=== PATIENT | female | born 1930 | race Caucasian/White ===

== ENCOUNTER 2019-02-16 15:47 | Emergency (ER) | payer MEDICARE, BC ==
--- NOTE | 2019-02-16 16:50 | EDM.PDOC ---
ED HPI GENERAL MEDICAL PROBLEM - General Chief Complaint: Gastrointestinal Problem Stated Complaint: n/v/d Time Seen by Provider: 02/16/19 16:33 Source of Information: Reports: Patient History Limitations: Reports: No Limitations - History of Present Illness INITIAL COMMENTS - FREE TEXT/NARRATIVE: Patient presents to ER with complaints of nausea, diarrhea and abdominal discomfort. States had one episode this am after breakfast where she felt she was going to vomit and has 3 episodes of loose stools since then. Has been doctoring due to abdominal bloating, had CT recently but states never really had pain like this. Did not note any blood in her stools. No fevers. Has not had an appetite today. Was feeling good over the last 2 days, did a lot of walking with family. No shortness of breath or chest pain. Family states her ankles were swollen the last 2 days. No urinary complaints. Onset: Today, Gradual Duration: Hour(s): Location: Reports: Abdomen Quality: Reports: Ache Severity: Moderate Improves with: Reports: Rest Worsens with: Reports: Eating Associated Symptoms: Reports: Loss of Appetite, Nausea/Vomiting. Denies: Confusion, Chest Pain, Cough, Fever/Chills, Headaches, Shortness of Breath Bilateral Lower Abdomen Pain Score (Numeric/FACES): 5 - Related Data Allergies Allergy/AdvReac Type Severity Reaction Status Date / Time bee venom protein (honey bee) Allergy Chills Verified 02/16/19 15:51 Penicillins Allergy Swelling Verified 02/16/19 15:51 Sulfa (Sulfonamide Allergy Other Verified 02/16/19 15:51 Antibiotics) Home Meds: Home Meds Acetaminophen [Tylenol Extra Strength] 500 mg PO BID 02/16/19 [History] Calcium Carbonate [Tums] 0.5 tab PO DAILY 02/16/19 [History] Losartan [Cozaar] 50 mg PO DAILY 02/16/19 [History] Metoprolol Succinate 25 mg PO DAILY 02/16/19 [History] Past Medical History HEENT History: Reports: Cataract Cardiovascular History: Reports: Hypertension Musculoskeletal History: Reports: Arthritis Social & Family History - Tobacco Use Smoking Status *Q: Never Smoker Second Hand Smoke Exposure: No ED ROS GENERAL - Review of Systems Review Of Systems: See Below Constitutional: Reports: Decreased Appetite. Denies: Fever, Chills, Malaise, Weakness HEENT: Denies: Ear Pain, Sinus Problem, Throat Pain, Vertigo Respiratory: Denies: Shortness of Breath, Cough Cardiovascular: Reports: Edema. Denies: Chest Pain, Lightheadedness Endocrine: Denies: Fatigue GI/Abdominal: Reports: Abdominal Pain, Diarrhea, Nausea. Denies: Vomiting Musculoskeletal: Reports: No Symptoms Skin: Reports: No Symptoms Neurological: Reports: No Symptoms ED EXAM, GI/ABD - Physical Exam Exam: See Below Exam Limited By: No Limitations General Appearance: Alert, WD/WN, No Apparent Distress Ears: Normal External Exam, Normal TMs Nose: Normal Inspection, Normal Mucosa, No Blood Throat/Mouth: Normal Inspection, Other (blackened color to tongue, has used Pepto Bismal today.) Neck: Normal Inspection, Supple, Non-Tender Respiratory/Chest: No Respiratory Distress, Lungs Clear, Normal Breath Sounds Cardiovascular: Normal Peripheral Pulses, Regular Rate, Rhythm GI/Abdominal Exam: Normal Bowel Sounds, Soft, Tender (lower quadrants) Extremities: Normal Inspection, Pedal Edema (trace) Skin Exam: Warm, Dry Course - Vital Signs Last Recorded V/S: Last Vital Signs Temp 98.6 F 02/16/19 16:00 Pulse 86 02/16/19 16:00 Resp 18 02/16/19 16:00 BP 149/79 H 02/16/19 16:00 Pulse Ox 97 02/16/19 16:00 - Orders/Labs/Meds Orders: Active Orders 24 hr Category Date Time Status Abdomen 2V AP Flat Upright [CR] Stat Exams 02/16/19 16:11 Ordered Labs: Laboratory Tests 02/16/19 02/16/19 02/16/19 Range/Units 16:12 16:12 16:12 WBC 12.7 H (5.0-10.0) 10^3/uL RBC 4.22 (4.00-5.50) 10^6/uL Hgb 13.8 (12.0-16.0) g/dL Hct 39.4 (37.0-47.0) % MCV 93.4 (82.0-94.0) fL MCH 32.7 H (27.0-32.0) pg MCHC 35.0 (33.0-38.0) g/dL RDW Coeff of Karmen 12.2 (11.0-15.0) % Plt Count 262 (150-400) 10^3/uL Neut % (Auto) 80.4 (35-85) % Lymph % (Auto) 10.1 (10-55) % [place] % (Auto) 9.3 (0-16) % Eos % (Auto) 0.1 (0-5) % Baso % (Auto) 0.1 (0-3) % Neut # (Auto) 10.24 H (1.80-7.00) 10^3/uL Lymph # (Auto) 1.29 (1.00-4.80) 10^3/uL [place] # (Auto) 1.19 H (0.00-0.80) 10^3/uL Eos # (Auto) 0.01 (0.00-0.45) 10^3/uL Baso # (Auto) 0.01 10^3/uL Sodium 129 L (136-145) mEq/L Potassium 3.7 (3.5-5.0) mEq/L Chloride 93 L (98-106) mEq/L Carbon Dioxide 24 (21-32) mmol/L BUN 17 (7-18) mg/dL Creatinine 0.8 (0.6-1.0) mg/dL Est Cr Clr Drug Dosing 42.78 mL/min Estimated GFR (MDRD) > 60 (>=60) mL/min Glucose 141 H D (75-99) mg/dL Calcium 9.0 (8.4-10.1) mg/dL Total Bilirubin 1.2 H (0.0-1.0) mg/dL AST 29 (15-37) U/L ALT 35 (12-78) U/L Alkaline Phosphatase 103 (46-116) U/L C-Reactive Protein 2.1 H (0.2-0.8) mg/dL Total Protein 7.2 (6.4-8.2) g/dL Albumin 3.9 (3.4-5.0) g/dL Urine Color Yellow (YELLOW) Urine Appearance Clear (CLEAR) Urine pH 5.5 (4.5-8.0) Ur Specific [place] 1.020 (1.003-1.020) Urine Protein Trace H (NEGATIVE) mg/dL Urine Glucose (UA) Negative (NEGATIVE) mg/dL Urine Ketones 40 H (NEGATIVE) mg/dL Urine Occult Blood Moderate H (NEGATIVE) Urine Nitrite Negative (NEGATIVE) Urine Bilirubin Negative (NEGATIVE) Urine Urobilinogen 0.2 (0.2-1.0) EU/dL Ur Leukocyte Esterase Negative (NEGATIVE) Urine RBC 0-5 (0-5) /HPF Urine WBC Not seen (0-5) /HPF Ur Squamous Epith Cells Occasional H (NOT SEEN) /HPF Urine Bacteria Occasional H (NOT SEEN) /HPF Meds: Medications Discontinued Medications Generic Name Dose Route Start Last Admin Trade Name Nathan PRN Reason Stop Dose Admin Ondansetron HCl 2 packet 02/16/19 17:07 02/16/19 17:11 Take Home: Ondansetron Odt 4 Mg, 2 Tab Pack PO 02/16/19 17:08 2 packet ONETIME ONE Administration - Re-Assessments/Exams Free Text/Narrative Re-Assessment/Exam: 02/16/19 17:05 Reviewed labs and xray with family. WBC and CRP are mildly elevated. Discussed consideration of CT scan and IV fluids. Patient may likely have gastroenteritis, would like to try at home and family is comfortable with that. Advised if pain increases, develops fever, vomiting or worsening symptoms, should return. Departure - Departure Time of Disposition: 17:08 Disposition: Home, Self-Care 01 Condition: Fair Clinical Impression: Diarrhea, Abdominal pain - Discharge Information *PRESCRIPTION DRUG MONITORING PROGRAM REVIEWED*: No *COPY OF PRESCRIPTION DRUG MONITORING REPORT IN PATIENT KAJAL: No Referrals: Lupillo Avendano MD [Primary Care Provider] - Forms: ED Department Discharge Additional Instructions: 1. Push fluids, gatorate 2. Rest 3. zofran 4 mg every 6 hours as needed for nausea 4. Return for IV fluids or further testing with CT if pain and diarrhea persists 5. If still have diarrhea on Monday, will proceed with collection of stools for further evaluation 6. Notify us if develop fever, pain increases or changes occur - My Orders Last 24 Hours: My Active Orders 02/16/19 16:11 Abdomen 2V AP Flat Upright [CR] Stat - Assessment/Plan Last 24 Hours: My Active Orders 02/16/19 16:11 Abdomen 2V AP Flat Upright [CR] Stat
[2019-02-16 16:53] LABS: CHLORIDE,CL 93 mEq/L (98-106); SODIUM,NA 129 mEq/L (136-145)
[2019-02-16] MEDS ORDERED: Take Home: Ondansetron 4 MG Tab.DIS, 2 Tab Pack PO ONE (17:07)
== END 2019-02-16 17:15 | disposition home or self-care (01) ==
LOC: CC.ED 15:47
DX: R19.7 Diarrhea, unspecified (principal); R10.31 Right lower quadrant pain; R10.32 Left lower quadrant pain; R11.2 Nausea with vomiting, unspecified; I10 Essential (primary) hypertension; M19.90 Unspecified osteoarthritis, unspecified site; Z91.030 Bee allergy status; Z88.0 Allergy status to penicillin; Z88.2 Allergy status to sulfonamides; Z79.899 Other long term (current) drug therapy
CPT/HCPCS: 36415; 74019; 80053; 81001; 85025; 86140; 99284; A9270

== ENCOUNTER 2019-02-17 04:55 | Observation (INO) | payer MEDICARE, BC ==
[2019-02-17] MEDS ORDERED: fentaNYL 100 MCG/2 ML SDV IVPUSH PRN (05:29)
[2019-02-17] MEDS ORDERED: Acetaminophen 325 MG Tab PO PRN (05:29)
[2019-02-17] MEDS ORDERED: Sodium Chloride 0.9% 10 ML Syringe FLUSH PRN (05:29)
[2019-02-17] MEDS ORDERED: Ondansetron 4 MG/2 ML SDV IV PRN (05:29)
[2019-02-17] MEDS ORDERED: Ondansetron 4 MG Tab.DIS PO PRN (05:29)
[2019-02-17] MEDS: Sodium Chloride 0.9% 1,000 ML IV SCH ×2 (05:57→12:54)
[2019-02-17] MEDS ORDERED: Enoxaparin 40 MG/0.4 ML Syringe SUBCUT SCH ×2 (06:00→08:00)
[2019-02-17 07:47] LABS: CHLORIDE,CL 91 mEq/L (98-106); SODIUM,NA 125 mEq/L (136-145)
[2019-02-17] MEDS ORDERED: Losartan 25 MG Tab PO SCH (08:00)
[2019-02-17] MEDS ORDERED: Metoprolol Succinate 25 MG Tab.ER PO SCH (08:00)
[2019-02-17] MEDS ORDERED: HYDROmorphone 1 MG/ML Syringe IVPUSH ONE (08:13)
[2019-02-17] MEDS ORDERED: Iopamidol 755 Mg/ML 100 ML Bottle IVPUSH ONE (10:32)
[2019-02-17] MEDS ORDERED: Barium Sulfate Oral Susp 450 ML Bottle PO ONE (10:34)
--- NOTE | 2019-02-17 12:19 | PCM.HP ---
H&P History of Present Illness - General Date of Service: 02/17/19 Admit Problem/Dx: Admission Diagnosis/Problem Admission Diagnosis/Problem Abdominal pain Source of Information: Patient History Limitations: Reports: No Limitations - History of Present Illness Initial Comments - Free Text/Narative: Patient presented for direct admit for increased abdominal pain. Patient was seen yesterday in ER for mild abdominal pain and diarrhea. Labs at that time showed WBC of 12.7, CRP of 2. Sodium 129. Suggested CT scan and IV fluids but patient was feeling better and wanted to return home to be with "all the family here for the 4th". States pain progressively got worse over the next 5 hours so presented back and directly admitted. Now experiencing more nausea and vomited x3. has not had any further diarrhea since prior to the first ER visti. Pain had gone from a 2-3 on discharge yesterday to a 9/10 now. No fevers. Admitted and started on IV normal saline, prep for CT scan of abdomen. Onset of Symptoms: Reports: Today, Gradual Duration of Symptoms: Reports: Hour(s):, Getting Worse Location: Reports: Abdomen Quality: Reports: Sharp Severity: Severe Improves with: Reports: None Associated Symptoms: Reports: Loss of Appetite, Nausea/Vomiting. Denies: Chest Pain, Cough, Fever/Chills, Shortness of Breath Lower Abdominal Pain Score (Numeric/FACES): 9 - Related Data Allergies/Adverse Reactions: Allergies Allergy/AdvReac Type Severity Reaction Status Date / Time bee venom protein (honey bee) Allergy Chills Verified 02/17/19 03:58 Penicillins Allergy Swelling Verified 02/17/19 03:58 Sulfa (Sulfonamide Allergy Other Verified 02/17/19 03:58 Antibiotics) Home Medications: Home Meds Acetaminophen [Tylenol Extra Strength] 500 mg PO BID 02/16/19 [History] Calcium Carbonate [Tums] 0.5 tab PO DAILY 02/16/19 [History] Losartan [Cozaar] 50 mg PO DAILY 02/16/19 [History] Metoprolol Succinate 25 mg PO DAILY 02/16/19 [History] Past Medical History HEENT History: Reports: Cataract Cardiovascular History: Reports: Hypertension Gastrointestinal History: Reports: Diverticulosis Musculoskeletal History: Reports: Arthritis - Past Surgical History HEENT Surgical History: Reports: None Cardiovascular Surgical History: Reports: None GI Surgical History: Reports: None Musculoskeletal Surgical History: Reports: None Social & Family History - Family History Family Medical History: Noncontributory - Tobacco Use Smoking Status *Q: Never Smoker Second Hand Smoke Exposure: No - Caffeine Use Caffeine Use: Reports: Coffee - Recreational Drug Use Recreational Drug Use: No H&P Review of Systems - Review of Systems: Review Of Systems: See Below General: Reports: Chills, Malaise, Weakness, Decreased Appetite. Denies: Fever HEENT: Reports: No Symptoms Pulmonary: Denies: Shortness of Breath, Cough Cardiovascular: Denies: Chest Pain, Edema, Lightheadedness Gastrointestinal: Reports: Abdominal Pain, Nausea, Vomiting. Denies: Diarrhea Exam - Exam Exam: See Below - Vital Signs Vital Signs: Last Vital Signs Temp 100.5 F 02/17/19 11:45 Pulse 108 H 02/17/19 11:45 Resp 16 02/17/19 11:45 BP 115/56 L 02/17/19 11:45 Pulse Ox 90 L 02/17/19 11:45 Weight: 162 lb 12.8 oz - Exam General: Alert, Oriented HEENT: Conjunctiva Clear, Mucosa Moist & [place], Posterior Pharynx Clear Neck: Supple Lungs: Clear to Auscultation, Normal Respiratory Effort Cardiovascular: Tachycardia GI/Abdominal Exam: Tender (bilateral lower quadrants, more guarded now with exam. Mildly distended. ), Abnormal Bowel Sounds Extremities: Normal Inspection, Pedal Edema (trace edema) Skin: Warm, Dry Neuro Extensive - Mental Status: Alert, Oriented x3 - Patient Data Lab Results Last 24 hrs: Laboratory Results - last 24 hr 02/17/19 02/17/19 Range/Units 07:20 07:20 WBC 4.9 L (5.0-10.0) 10^3/uL RBC 4.33 (4.00-5.50) 10^6/uL Hgb 14.1 (12.0-16.0) g/dL Hct 40.4 (37.0-47.0) % MCV 93.3 (82.0-94.0) fL MCH 32.6 H (27.0-32.0) pg MCHC 34.9 (33.0-38.0) g/dL RDW Coeff of Karmen 12.5 (11.0-15.0) % Plt Count 258 (150-400) 10^3/uL Neut % (Auto) 81.0 (35-85) % Lymph % (Auto) 10.0 (10-55) % [place] % (Auto) 9.0 (0-16) % Eos % (Auto) 0 (0-5) % Baso % (Auto) 0 (0-3) % Neut # (Auto) 3.97 (1.80-7.00) 10^3/uL Lymph # (Auto) 0.49 L (1.00-4.80) 10^3/uL [place] # (Auto) 0.44 (0.00-0.80) 10^3/uL Eos # (Auto) 0.00 (0.00-0.45) 10^3/uL Baso # (Auto) 0.00 10^3/uL Sodium 125 L (136-145) mEq/L Potassium 4.2 (3.5-5.0) mEq/L Chloride 91 L (98-106) mEq/L Carbon Dioxide 25 (21-32) mmol/L BUN 16 (7-18) mg/dL Creatinine 0.8 (0.6-1.0) mg/dL Est Cr Clr Drug Dosing 46.38 mL/min Estimated GFR (MDRD) > 60 (>=60) mL/min Glucose 134 H (75-99) mg/dL Calcium 8.6 (8.4-10.1) mg/dL C-Reactive Protein 11.3 H (0.2-0.8) mg/dL Result Diagrams: 02/17/19 07:20 02/17/19 07:20 - Problem List (1) Abdominal pain SNOMED Code(s): 29107673 ICD Code: R10.9 - UNSPECIFIED ABDOMINAL PAIN Status: Acute Priority: High Current Visit: Yes Problem List Initiated/Reviewed/Updated: Yes Orders Last 24hrs: Active Orders 24 hr Category Date Time Status Patient Status [ADT] Routine ADT 02/17/19 05:30 Active Oxygen Therapy [RC] DAILY Care 02/17/19 05:30 Active Peripheral IV Care [RC] 08,1999 Care 02/17/19 05:33 Active Up ad [place] [RC] .PRN Care 02/17/19 05:29 Active Vital Signs [RC] 0000,0400,0800,1200,1600,1999 Care 02/17/19 05:30 Active Nothing per Oral Now Diet [DIET] Diet 02/17/19 Breakfast Active Abdomen Pelvis w Cont [CT] Routine Exams 02/17/19 05:29 Taken Acetaminophen [Tylenol] Med 02/17/19 05:29 Active 650 mg PO Q4H PRN Enoxaparin [Lovenox] Med 02/17/19 08:00 Active 40 mg SUBCUT Q24H Losartan [Cozaar] Med 02/17/19 08:00 Active 50 mg PO DAILY Metoprolol Succinate [Toprol XL] Med 02/17/19 08:00 Active 25 mg PO DAILY Ondansetron [Zofran ODT] Med 02/17/19 05:29 Active 4 mg PO Q4H PRN Ondansetron [Zofran] Med 02/17/19 05:29 Active 4 mg IV Q4H PRN Sodium Chloride 0.9% [Normal Saline] 1,000 ml Med 02/17/19 05:30 Active IV ASDIRECTED Sodium Chloride 0.9% [Saline Flush] Med 02/17/19 05:29 Active 10 ml FLUSH ASDIRECTED PRN fentaNYL [Sublimaze] Med 02/17/19 05:29 Active 25 mcg IVPUSH Q4H PRN Peripheral IV Insertion Adult [OM.PC] Routine Oth 02/17/19 05:29 Ordered Resuscitation Status Routine Resus Stat 02/17/19 05:29 Ordered Medication Orders Acetaminophen (Tylenol) 650 mg PO Q4H PRN PRN Reason: Pain (Mild 1-3)/fever Enoxaparin Sodium (Lovenox) 40 mg SUBCUT Q24H [facility] Last Admin: 02/17/19 08:00 Dose: 40 mg Fentanyl (Sublimaze) 25 mcg IVPUSH Q4H PRN PRN Reason: Pain Last Admin: 02/17/19 05:54 Dose: 25 mcg Sodium Chloride (Normal Saline) 1,000 mls @ 125 mls/hr IV ASDIRECTED [facility] Last Admin: 02/17/19 05:57 Dose: 125 mls/hr Losartan Potassium (Cozaar) 50 mg PO DAILY [facility] Last Admin: 02/17/19 08:00 Dose: Metoprolol Succinate (Toprol Xl) 25 mg PO DAILY [facility] Last Admin: 02/17/19 08:00 Dose: Ondansetron HCl (Zofran Odt) 4 mg PO Q4H PRN PRN Reason: nausea, able to take PO Ondansetron HCl (Zofran) 4 mg IV Q4H PRN PRN Reason: Nausea/Vomiting Last Admin: 02/17/19 05:56 Dose: 4 mg Sodium Chloride (Saline Flush) 10 ml FLUSH ASDIRECTED PRN PRN Reason: Keep Vein Open Assessment/Plan Comment:: Patient will be admitted for IV fluids, proceed with CT scan of abdomen. Zofran for nausea. Fentanyl for pain. Will follow.
[2019-02-17] MEDS ORDERED: Ertapenem 1 GM in Sodium Chloride 0.9% 100 ML IV ONE (12:21)
[2019-02-17] MEDS ORDERED: HYDROmorphone 1 MG/ML Syringe IVPUSH PRN (12:24)
--- NOTE | 2019-02-17 12:32 | PCM.DCSUM1 ---
Discharge Summary - Hospital Course Free Text/Narrative:: Patient admitted to observation for increasing abdominal pain. Was in ER yesterday with mild abdominal pain that had actually improved while in the ER. Had 3 diarrhea stools prior to arrival, none after. No fevers. Labs did show WBC of 12.7, CRP of 2, UA negative. Sodium low at 129. Suggested admission or at minimum CT scan of abdomen and IV fluids but as she felt better, patient preferred to go home with family. Returned approximately 12 hours later and was directly admitted for increasing abdominal pain. Patient now nauseated, had vomited x3 after arrival. Diagnosis: Stroke: No Modified [place] Scale: No Symptoms at All Modified [place] Scale Score: 0 - Discharge Data Discharge Date: 02/17/19 Discharge Disposition: DC/Tfer to Acute Hospital 02 Condition: Fair - Discharge Diagnosis/Problem(s) (1) Abdominal pain SNOMED Code(s): 65192384 ICD Code: R10.9 - UNSPECIFIED ABDOMINAL PAIN Status: Acute Priority: High Current Visit: Yes - Patient Summary/Data Complications: none Hospital Course: Patient admitted and started on IV normal saline. Labs repeated. WBC now low at 4.9 but CRP is 11.3. Sodium down to 125. Given Zofran for nausea. No further diarrhea. Prep started for CT scan but did take some time for patient to tolerate oral contrast. Fentanyl was given for pain, did not feel any relief form that. Dilaudid then given with better control of her pain. Abdomen is more firm today, hypoactive bowel sounds noted. More tender by exam. Over the last few hours, noted that sats only 90% on room air while sleeping. Oxygen placed at 2 liters. Temp now 100.5. CT scan accomplished and radiology report received. Shows acute appendicitis. Did contact [facility] and spoke with Dr. Blanchard, ER physician who agreed to accept the patient in transfer. Recommended dose of Invanz now. Will transfer ALS to cover pain, continue IV fluids. - Patient Instructions Diet: NPO Activity: As Tolerated - Discharge Plan *PRESCRIPTION DRUG MONITORING PROGRAM REVIEWED*: No *COPY OF PRESCRIPTION DRUG MONITORING REPORT IN PATIENT KAJAL: No Home Medications: Home Meds Acetaminophen [Tylenol Extra Strength] 500 mg PO BID 02/16/19 [History] Calcium Carbonate [Tums] 0.5 tab PO DAILY 02/16/19 [History] Losartan [Cozaar] 50 mg PO DAILY 02/16/19 [History] Metoprolol Succinate 25 mg PO DAILY 02/16/19 [History] - Discharge Summary/Plan Comment DC Time >30 min.: Yes Discharge Summary/Plan Comment: Transfer to [facility] for acute appendicitis. Time spent with family and patient 20 minutes Time for transfer arrangements and discharge 15 minutes. Time for documentation 10 minutes. - General Info Date of Service: 02/17/19 Admission Dx/Problem (Free Text: Admission Diagnosis/Problem Admission Diagnosis/Problem Abdominal pain Functional Status: Reports: Pain Controlled. Denies: Tolerating Diet (remains NPO) - Review of Systems General: Reports: Fever, Weakness, Fatigue, Malaise HEENT: Reports: No Symptoms Pulmonary: Denies: Shortness of Breath, Cough Cardiovascular: Reports: Edema (trace). Denies: Chest Pain, Lightheadedness Gastrointestinal: Reports: Abdominal Pain, Nausea. Denies: Diarrhea, Vomiting Genitourinary: Reports: No Symptoms Musculoskeletal: Reports: No Symptoms Skin: Reports: No Symptoms Neurological: Reports: No Symptoms - Patient Data Vitals - Most Recent: Last Vital Signs Temp 100.5 F 02/17/19 11:45 Pulse 108 H 02/17/19 11:45 Resp 16 02/17/19 11:45 BP 115/56 L 02/17/19 11:45 Pulse Ox 90 L 02/17/19 11:45 Weight - Most Recent: 162 lb 12.8 oz Lab Results - Last 24 hrs: Laboratory Results - last 24 hr 02/17/19 02/17/19 Range/Units 07:20 07:20 WBC 4.9 L (5.0-10.0) 10^3/uL RBC 4.33 (4.00-5.50) 10^6/uL Hgb 14.1 (12.0-16.0) g/dL Hct 40.4 (37.0-47.0) % MCV 93.3 (82.0-94.0) fL MCH 32.6 H (27.0-32.0) pg MCHC 34.9 (33.0-38.0) g/dL RDW Coeff of Karmen 12.5 (11.0-15.0) % Plt Count 258 (150-400) 10^3/uL Neut % (Auto) 81.0 (35-85) % Lymph % (Auto) 10.0 (10-55) % [place] % (Auto) 9.0 (0-16) % Eos % (Auto) 0 (0-5) % Baso % (Auto) 0 (0-3) % Neut # (Auto) 3.97 (1.80-7.00) 10^3/uL Lymph # (Auto) 0.49 L (1.00-4.80) 10^3/uL [place] # (Auto) 0.44 (0.00-0.80) 10^3/uL Eos # (Auto) 0.00 (0.00-0.45) 10^3/uL Baso # (Auto) 0.00 10^3/uL Sodium 125 L (136-145) mEq/L Potassium 4.2 (3.5-5.0) mEq/L Chloride 91 L (98-106) mEq/L Carbon Dioxide 25 (21-32) mmol/L BUN 16 (7-18) mg/dL Creatinine 0.8 (0.6-1.0) mg/dL Est Cr Clr Drug Dosing 46.38 mL/min Estimated GFR (MDRD) > 60 (>=60) mL/min Glucose 134 H (75-99) mg/dL Calcium 8.6 (8.4-10.1) mg/dL C-Reactive Protein 11.3 H (0.2-0.8) mg/dL Med Orders - Current: Current Medications Acetaminophen (Tylenol) 650 mg PO Q4H PRN PRN Reason: Pain (Mild 1-3)/fever Enoxaparin Sodium (Lovenox) 40 mg SUBCUT Q24H [facility] Last Admin: 02/17/19 08:00 Dose: 40 mg Fentanyl (Sublimaze) 25 mcg IVPUSH Q4H PRN PRN Reason: Pain Last Admin: 02/17/19 05:54 Dose: 25 mcg Hydromorphone HCl (Dilaudid) 1 mg IVPUSH Q1H PRN PRN Reason: Pain Sodium Chloride (Normal Saline) 1,000 mls @ 125 mls/hr IV ASDIRECTED [facility] Last Admin: 02/17/19 05:57 Dose: 125 mls/hr Ertapenem 1 gm/ Sodium (Chloride) 100 mls @ 100 mls/hr IV ONETIME ONE Stop: 02/17/19 13:20 Losartan Potassium (Cozaar) 50 mg PO DAILY [facility] Last Admin: 02/17/19 08:00 Dose: Not Given Metoprolol Succinate (Toprol Xl) 25 mg PO DAILY [facility] Last Admin: 02/17/19 08:00 Dose: Not Given Ondansetron HCl (Zofran Odt) 4 mg PO Q4H PRN PRN Reason: nausea, able to take PO Ondansetron HCl (Zofran) 4 mg IV Q4H PRN PRN Reason: Nausea/Vomiting Last Admin: 02/17/19 05:56 Dose: 4 mg Sodium Chloride (Saline Flush) 10 ml FLUSH ASDIRECTED PRN PRN Reason: Keep Vein Open Discontinued Medications Barium Sulfate (Readi-Cat 2) 450 ml PO ONETIME ONE Stop: 02/17/19 10:35 Last Admin: 02/17/19 11:06 Dose: 450 ml Enoxaparin Sodium (Lovenox) 40 mg SUBCUT Q24H [facility] Last Admin: 02/17/19 06:52 Dose: Not Given Hydromorphone HCl (Dilaudid) 1 mg IVPUSH ONETIME ONE Stop: 02/17/19 08:14 Last Admin: 02/17/19 08:18 Dose: 1 mg Iopamidol (Isovue-370 (76%)) 100 ml IVPUSH ONETIME ONE Stop: 02/17/19 10:33 Last Admin: 02/17/19 11:06 Dose: 100 ml - Exam Quality Assessment: Reports: Supplemental Oxygen General: Reports: Alert, Oriented, Sedated (sleepy from pain meds) HEENT: Reports: Mucous Membr. Moist/[place] Neck: Reports: Supple Lungs: Reports: Clear to Auscultation, Normal Respiratory Effort Cardiovascular: Reports: Regular Rhythm, Tachycardia GI/Abdominal Exam: Normal Bowel Sounds, Soft, Non-Tender Extremities: Normal Inspection, No Pedal Edema Skin: Reports: Warm, Dry Neurological: Reports: No New Focal Deficit
[2019-02-17] MEDS ORDERED: Meropenem 1 GM SDV IVPUSH ONE (12:43)
[2019-02-17] MEDS ORDERED: Ondansetron 4 MG Tab.DIS PO ONE (12:59)
== END 2019-02-17 13:00 ==
LOC: CC.ED 04:55 → CC.MS 04:55 → CC.ED 04:55 → CC.MS 05:24 → UNDOADMOB 05:24 → OBSVTOIN 05:24 → INTOOBSV 05:24 → CC.MS 05:29 → UNDOADMOB 05:29 → CC.MS 05:30 → EDSTATUS 12:57 → CC.ED 13:00 → UNDODISOB 13:00 → EDSTATUS 13:00 → CC.MS 13:00 → UNDOADMOB 13:00
PROVIDERS: ADMIT Physician Assistant Medical; ATTEND Family Medicine
DX: R10.9 Unspecified abdominal pain (principal); I10 Essential (primary) hypertension; M19.90 Unspecified osteoarthritis, unspecified site; Z79.1 Long term (current) use of non-steroidal anti-inflammatories (NSAID); Z79.899 Other long term (current) drug therapy; Z91.030 Bee allergy status; Z88.0 Allergy status to penicillin; Z88.2 Allergy status to sulfonamides
CPT/HCPCS: 36415; 74177; 80048; 85025; 86140; 96361; 96372; 96374; 96375; 96376; 99235; A9270; G0378; J1170; J1650; J2185; J2405; J3010; J7030; Q9967; 99285-25